=== PATIENT | female | born 1980 | race Caucasian/White ===

== ENCOUNTER → 2018-06-02 | Outpatient (CLI) | payer BC ==
[~2018-06-02] MED LIST: E-Z-GAS II EFFERVESCENT PACKET (SODIUM BICARB./CITRIC ACID/SIMETHICONE) As Ordered; E-Z-HD 98% w/w 340GM SUSP BTL As Ordered; E-Z-PAQUE 96% w/w SUSP 176GM BTL As Ordered
== END ==
LOC: M RAD 10:05
DX: R10.12 Left upper quadrant pain (principal); K59.00 Constipation, unspecified; K62.5 Hemorrhage of anus and rectum; K80.20 Calculus of gallbladder without cholecystitis without obstruction; K21.9 Gastro-esophageal reflux disease without esophagitis
CPT/HCPCS: 76700

== ENCOUNTER → 2019-06-14 | Outpatient (REF) | payer BC ==
[2019-06-20 14:22] LABS: HPV LOW VOL RFLX Negative (Negative)
== END ==
LOC: M LAB LCGH 12:01
PROVIDERS: ATTEND Obstetrics & Gynecology
DX: Z12.4 Encounter for screening for malignant neoplasm of cervix (principal)